=== PATIENT | female | born 1965 | race Caucasian/White ===

== ENCOUNTER → 2023-08-25 06:00 | Day surgery (SDC) | payer OTHER, SELFPAY | LOC: GI 06:00 | PROVIDERS: ATTENDING PHYSICIAN Internal Medicine Gastroenterology | DX: Z12.11 Encounter for screening for malignant neoplasm of colon (principal); Z83.719 Family history of colon polyps, unspecified; K57.30 Diverticulosis of large intestine without perforation or abscess without bleeding; D12.3 Benign neoplasm of transverse colon | CPT/HCPCS: 45385; 88305 ==